=== PATIENT | female | born 1990 | race Two or more races ===

== ENCOUNTER 2024-10-09 22:40 | Emergency (ER) | payer OTHER ==
[~2024-10-09] VITALS: Ht 152.4 cm; Wt 61.2 kg
[2024-10-09] MEDS ORDERED: ACETAMINOPHEN ES 500 MG TABLET ONE (23:58)
[2024-10-10] MEDS: ACETAMINOPHEN ES 500 MG TABLET PO ONE
[2024-10-10 02:10] VITALS: BP 108/90; TEMP 98.1; O2SAT 98
== END 2024-10-10 02:10 | disposition home or self-care (01) ==
LOC: ER 22:42
DX: S02.2XXA Fracture of nasal bones, initial encounter for closed fracture (principal); V43.52XA Car driver injured in collision with other type car in traffic accident, initial encounter; Y93.89 Activity, other specified; Y92.89 Other specified places as the place of occurrence of the external cause; Y99.8 Other external cause status
CPT/HCPCS: 70486-TC